=== PATIENT | male | born 1975 | race Caucasian/White ===

== ENCOUNTER → 2017-04-04 | Outpatient (CLI) | payer BC ==
[~2017-04-04] MED LIST: CHOL400T43 GT; HYDR-1231 PO; MULT-974 PO; NFNEB10T PO; OMEP20CA12 PO
--- NOTE | 2017-04-04 14:34 | Diagnostic Imaging Report ---
INDICATION: Nonhealing ulcer. Time of exam 2:32 PM A BB marker was placed at the area of the nonhealing ulcer in the lateral right foot. Postsurgical changes to the right foot are noted. There are plates and screws transfixing the fourth and fifth metatarsals. There appears to be segmental fractures involving the plate of the fifth metatarsal. Fractures are at the junctions of the proximal and mid third as well as the mid and distal third. There is some residual lucency through the proximal fifth metatarsal consistent with a residual fracture line. No definite bony destructive changes are seen. No soft tissue gas is identified. Midfoot is unremarkable. Hindfoot does show 2 partially threaded screws transfixing the calcaneus. Minimal residual lucency through the calcaneus is present. Impression: Postop changes to the right foot, as described. There has been a fracture of the plate transfixing the fifth metatarsal. There are some residual fracture lines of the fifth metatarsal and calcaneus. No bony destructive changes are seen. Dictated by: Dictated on workstation # [id number]
== END ==
LOC: RAD 13:59
PROVIDERS: ATTEND Nurse Practitioner
DX: T84.213A Breakdown (mechanical) of internal fixation device of bones of foot and toes, initial encounter (principal); S92.351A Displaced fracture of fifth metatarsal bone, right foot, initial encounter for closed fracture; S92.001A Unspecified fracture of right calcaneus, initial encounter for closed fracture; L97.412 Non-pressure chronic ulcer of right heel and midfoot with fat layer exposed
CPT/HCPCS: 73630

== ENCOUNTER → 2017-04-04 | Outpatient (CLI) | payer BC | LOC: WOUNDCARE 12:04 | PROVIDERS: ATTEND Nurse Practitioner | DX: L97.412 Non-pressure chronic ulcer of right heel and midfoot with fat layer exposed (principal); G57.93 Unspecified mononeuropathy of bilateral lower limbs; E24.0 Pituitary-dependent Cushing's disease | CPT/HCPCS: 11042; 87070; 87075; 87101; 87205 ==

== ENCOUNTER → 2017-04-11 | Outpatient (CLI) | payer BC | LOC: WOUNDCARE 15:12 | PROVIDERS: ATTEND Nurse Practitioner | DX: L97.412 Non-pressure chronic ulcer of right heel and midfoot with fat layer exposed (principal); G57.93 Unspecified mononeuropathy of bilateral lower limbs; E24.0 Pituitary-dependent Cushing's disease | CPT/HCPCS: 11042; 82962 ==

== ENCOUNTER 2017-04-30 17:11 | Emergency (ER) | payer BC ==
[~2017-04-30] VITALS: Ht 195.6 cm; Wt 131.5 kg
--- OUTSIDE RECORDS SUMMARY | 2017-04-30 17:17 | XMS REPORT | Continuity of Care Document ---
Author Author [facility] Organization [facility] Address Unknown Phone Unavailable Allergies Active Description Code Type Severity Reaction Onset Reported/Identified Relationship to Patient Clinical Status Yes No Known Drug Allergies [id number] Drug Allergy Unknown N/A 07/17/2014 Medications There is no data. Problems Date Dx Coded Attending Type Code Diagnosis Diagnosed By 05/28/2011 Ot 288.60 05/28/2011 Ot 401.9 05/28/2011 Ot 692.9 05/28/2011 Ot V58.69 07/17/2014 Ot 288.60 07/17/2014 Ot 288.60 07/17/2014 Ot 288.60 07/17/2014 Ot 288.60 07/17/2014 TORIBIO TORRES MD Ot 592.1 07/17/2014 TORIBIO TORRES MD Ot 789.04 09/05/2014 Ot 288.60 09/05/2014 Ot 288.60 09/05/2014 Ot 288.60 09/09/2014 Ot 288.60 09/09/2014 Ot 288.60 09/09/2014 Ot 288.60 11/22/2014 Ot 288.60 11/22/2014 Ot 288.60 11/22/2014 Ot 288.60 12/01/2014 DONG, BOBAN N Ot 288.60 12/01/2014 DONG, BOBAN N Ot V58.69 12/02/2014 DONG, BOBAN N Ot 288.60 12/02/2014 DONG, BOBAN N Ot V58.69 12/08/2014 DONG, BOBAN N Ot 288.60 12/08/2014 DONG, BOBAN N Ot V58.69 01/10/2015 DONG, BOBAN N Ot 288.60 01/10/2015 DONG, BOBAN N Ot V58.69 01/19/2015 DONG, BOBAN N Ot D72.829 01/19/2015 DONG, BOBAN N Ot Z79.899 02/17/2015 DONG, BOBAN N Ot D72.829 02/17/2015 DAVID UMANA Ot Z79.899 03/09/2015 DAVID UMANA Ot D72.829 03/09/2015 DAVID UMANA Ot Z79.899 04/05/2017 JAYLEN MANZO ELECTRO PLATER Ot 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 04/05/2017 JAYLEN MANZO ELECTRO PLATER Ot G57.93 UNSPECIFIED MONONEUROPATHY OF BILATERAL 04/05/2017 JAYLEN MANZO R ELECTRO PLATER Ot 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 04/08/2017 JAYLEN MANZO R ELECTRO PLATER Ot 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 04/08/2017 JAYLEN MANZO R ELECTRO PLATER Ot S92.001A UNSP FRACTURE OF RIGHT CALCANEUS, INIT F 04/08/2017 JAYLEN MANZO ELECTRO PLATER Ot S92.351A DISP FX OF FIFTH METATARSAL BONE, RIGHT 04/08/2017 JAYLEN MANZO ELECTRO PLATER Ot T84.213A BREAKDOWN OF INT FIX OF BONES OF FOOT AN 04/12/2017 JAYLEN MANZO ELECTRO PLATER Ot 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 04/12/2017 JAYLEN MANZO R ELECTRO PLATER Ot G57.93 UNSPECIFIED MONONEUROPATHY OF BILATERAL 04/12/2017 JAYLEN MANZO R ELECTRO PLATER Ot 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 04/17/2017 JAYLEN MANZO ELECTRO PLATER Ot 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 04/17/2017 JAYLEN MANZO ELECTRO PLATER Ot G57.93 UNSPECIFIED MONONEUROPATHY OF BILATERAL 04/17/2017 JAYLEN MANZO ELECTRO PLATER Ot 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 04/17/2017 JAYLEN MANZO R ELECTRO PLATER Ot 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 Results Test Result Range Bacteria identification in isolate by anaerobe culture - 04/04/17 13:30 QUANTITY OF GROWTH Scant Growth NRG Bacteria identification in isolate by anaerobe culture [id number] NRG Gram stain microscopy - 04/04/17 13:30 GRAM STAIN RESULT MODERATE # GRAM POSITIVE COCCI NRG Bacteria identification in wound by culture - 04/04/17 13:30 Bacteria identification in wound by culture [id number] NR FREE TEXT EXTERNAL SEE COMMENT NRG QUANTITY OF GROWTH Moderate Growth NRG Bacterial susceptibility panel - 04/04/17 13:30 Oxacillin susceptibility test by minimum inhibitory concentration 0.5 NRG Gentamicin susceptibility test by minimum inhibitory concentration < = NRG Clindamycin susceptibility test by minimum inhibitory concentration R NRG Erythromycin susceptibility test by minimum inhibitory concentration R NRG Trimethoprim/sulfamethoxazole susceptibility test by minimum inhibitoryconcentration S NRG Vancomycin susceptibility test by minimum inhibitory concentration 1 NRG Levofloxacin susceptibility test by minimum inhibitory concentration 0.25 NRG Rifampin susceptibility test by minimum inhibitory concentration <= NRG Tetracycline susceptibility test by minimum inhibitory concentration <= NRG Linezolid susceptibility test by minimum inhibitory concentration 2 NRG Fungus culture - 04/04/17 13:30 FUNGUS REPORT NO FUNGUS GROWTH OBSERVED NRG Capillary blood glucose measurement by glucometer (mass/volume) - 04/11/17 16: 24 Capillary blood glucose measurement by glucometer (mass/volume) 69 mg/dL 70-110 Encounters ACCT No. Visit Date/Time Discharge Status Pt. Type Provider Facility Loc./Unit Complaint [id number] 04/11/2017 15:12:00 04/11/2017 23:59:59 CLS Outpatient JAYLEN MANZO APRN [facility] WOUNDCARE [id number] 04/04/2017 13:59:00 04/04/2017 23:59:59 CLS Outpatient JAYLEN MANZO APRN [facility] RAD L97.412 [id number] 04/04/2017 12:04:00 04/04/2017 23:59:59 CLS Outpatient JOVANY JAYLEN R ELECTRO PLATER [facility] WOUNDCARE [id number] 03/10/2015 00:10:00 03/10/2015 23:59:59 CLS Preadmit DAVID UMANA [facility] ONC [id number] 01/03/2015 14:52:00 03/09/2015 00:01:00 DIS Outpatient DAVID UMANA [facility] ONC [id number] 11/22/2014 15:45:00 12/01/2014 00:01:00 DIS Outpatient DAVID UMANA [facility] ONC [id number] 07/17/2014 21:49:00 07/17/2014 23:21:00 DIS Emergency TORIBIO TORRES MD [facility] ER [id number] 09/05/2014 08:10:00 Document Registration [id number] 09/05/2014 08:10:00 Document Registration [id number] 05/29/2011 00:00:00 Document Registration [id number] 02/27/2011 09:36:00 Document Registration [id number] 02/12/2011 15:01:00 Document Registration [id number] 12/27/2010 15:22:00 Document Registration
--- NOTE | 2017-04-30 18:11 | ED Respiratory ---
General Chief Complaint: Respiratory Problems Stated Complaint: SOB, POSS BLOOD CLOT Nursing Triage Note: AMB TO ROOM FROM [facility] DENT[facility] ASSIST[facility] OFFICE . PATIENT REPORTS IS 1 WEEK POST OF FROM HAVING HARDWARE REMOVED FROM R LEG. TODAY FEELING SOA. NO DISTRESS ON ADMIT. Source: patient, spouse Exam Limitations: no limitations History of Present Illness Date Seen by Provider: Apr 30, 2017 Time Seen by Provider: 17:55 Initial Comments Patient presents to the ER from [facility] and [place] where he was seen and they sent him here for further workup here is concerned he might have a pulmonary embolism. Patient remarks that since this afternoon he started feeling very short of breath with some pressure heaviness on his chest. He has no history of coronary disease or asthma. One week ago he had surgery on his foot to have some broken hardware removed as well as a bone spur shaved off. He was doing well and was on a stress response dose of steroids and 2 days ago had worked his way down to his normal dose of 20 mg in the morning followed by 10 in the afternoon and 10 at night. 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 He is nondiabetic although he was for about a year and has resultant for extremity peripheral neuropathy. He says he does not have a history of nephropathy. He's never had a blood clot before and he is not on blood thinners. He does not think he is having any pain in his calf either side however he cannot feel his foot or toes secondary to the neuropathy. He is in a boot. The patient states in the past when his steroid dose was lowered he felt mostly nausea, malaise, flulike symptoms and that is different from today's presentation. Allergies and Home Medications Allergies Coded Allergies: No Known Drug Allergies (Unverified , 07/17/14) Home Medications Hydrocodone Bit/Acetaminophen 1 Tab Tablet, 1-2 TAB PO Q6H PRN for PAIN Prescribed by: TORIBIO TORRES on 07/17/140 Multivitamin 1 Each Tablet, 1 TAB PO TID, (Reported) Nebivolol Hcl 10 Mg Tablet, 5 MG PO DAILY, (Reported) Omeprazole 20 Mg Capsule.dr, 20 MG PO DAILY, (Reported) Constitutional: No chills, No fever, No malaise, No weakness EENTM: No ear discharge, No hearing loss, No eye pain, No mouth pain Respiratory: No cough, No phlegm, short of breath, No stridor, No wheezing Cardiovascular: see HPI, No chest pain, No Hx of Intervention, No palpitations , No syncope Gastrointestinal: No abdominal pain, No constipation, No nausea, No vomiting Genitourinary: No discharge, No dysuria Skin: No pruritus, No rash Psychiatric/Neurological: Denies Anxiety, Denies Depressed Past Yueuoat-Mijpdd-Ufmeba Hx Patient Social History Alcohol Use: Denies Use Recreational Drug Use: No Smoking Status: Never a Smoker Recent Foreign Travel: No Contact w/Someone Who Travel: No Recent Infectious Disease Expo: No Surgeries History of Surgeries: Yes (gastric sleeve, R foot, L knee) Surgeries: Orthopedic, Vasectomy Respiratory History of Respiratory Disorde: No Cardiovascular History of Cardiac Disorders: Yes Cardiac Disorders: Hypertension Neurological History of Neurological Disord: No Reproductive System Hx Reproductive Disorders: No Sexually Transmitted Disease: No Genitourinary Genitourinary Disorders: Kidney Stones Gastrointestinal History of Gastrointestinal Di: Yes Gastrointestinal Disorders: Gastroesophageal Reflux Musculoskeletal History of Musculoskeletal Dis: No Endocrine History of Endocrine Disorders: Yes Cancer History of Cancer: No Psychosocial History of Psychiatric Problem: No Integumentary History of Skin or Integumenta: No Blood Transfusions History of Blood Disorders: No Physical Exam Vital Signs Vital Signs - First Documented 04/30/17 17:45 Temp 98.2 Pulse 78 Resp 18 B/P (MAP) 133/76 (95) Pulse Ox 98 O2 Delivery Room Air Capillary Refill : Greater Than 3 Seconds General Appearance: WD/WN, no apparent distress Eyes: Bilateral Eye Normal Inspection, Bilateral Eye PERRL, Bilateral Eye EOMI HEENT: PERRL/EOMI, normal ENT inspection, pharynx normal Neck: non-tender, full range of motion, normal inspection Respiratory: chest non-tender, lungs clear, normal breath sounds, no respiratory distress, no accessory muscle use Cardiovascular: normal peripheral pulses, regular rate, rhythm Gastrointestinal: normal bowel sounds, non tender, soft Extremities: normal range of motion, non-tender, no pedal edema, normal capillary refill, swelling (Right calf is about 10% larger than left calf but nonerythematous and with no pain and no Bernard's sign.), other (Right popliteal artery pulse easily palpable) Neurologic/Psychiatric: alert, normal mood/affect, oriented x 3, sensory deficit (Stable deficit of sensory in both feet.) Skin: normal color, warm/dry Progress/Results/Core Measures Suspected Sepsis Recent Fever Within 48 Hours: No Infection Criteria Present: None New/Unexplained Altered Menta: No Sepsis Screen: No Definite Risk Sepsis Diagnosis: SIRS Temperature:98.2 Pulse: 78 Respiratory Rate: 18 Laboratory Tests 04/30/17 18:26: White Blood Count 18.0H Blood Pressure 133 /76 Mean: 95 Laboratory Tests 04/30/17 18:26: Creatinine 1.18, Platelet Count 368, Total Bilirubin 1.0 Results/Orders Lab Results Laboratory Tests Test 04/30/17 18:26 Range/Units White Blood Count 18.0 H 4.3-11.0 10^3/uL Red Blood Count 4.41 4.35-5.85 10^6/uL Hemoglobin 11.7 L 13.3-17.7 G/DL Hematocrit 35 L 40-54 % Mean Corpuscular Volume 80 80-99 FL Mean Corpuscular Hemoglobin 27 25-34 PG Mean Corpuscular Hemoglobin Concent 33 32-36 G/DL Red Cell Distribution Width 14.6 H 10.0-14.5 % Platelet Count 368 130-400 10^3/uL Mean Platelet Volume 9.9 7.4-10.4 FL Neutrophils (%) (Auto) 69 42-75 % Lymphocytes (%) (Auto) 24 12-44 % Monocytes (%) (Auto) 6 0-12 % Eosinophils (%) (Auto) 1 0-10 % Basophils (%) (Auto) 0 0-10 % Neutrophils # (Auto) 12.4 H 1.8-7.8 X 10^3 Lymphocytes # (Auto) 4.3 H 1.0-4.0 X 10^3 Monocytes # (Auto) 1.1 H 0.0-1.0 X 10^3 Eosinophils # (Auto) 0.2 0.0-0.3 10^3/uL Basophils # (Auto) 0.0 0.0-0.1 10^3/uL Neutrophils % (Manual) 68 % Lymphocytes % (Manual) 25 % Monocytes % (Manual) 7 % Blood Morphology Comment NORMAL D-Dimer 0.53 H 0.00-0.49 UG/ML Sodium Level 139 135-145 MMOL/L Potassium Level 3.8 3.6-5.0 MMOL/L Chloride Level 98 98-107 MMOL/L Carbon Dioxide Level 31 21-32 MMOL/L Anion Gap 10 5-14 MMOL/L Blood Urea Nitrogen 28 H 7-18 MG/DL Creatinine 1.18 0.60-1.30 MG/DL Estimat Glomerular Filtration Rate > 60 BUN/Creatinine Ratio 24 Glucose Level 102 70-105 MG/DL Calcium Level 10.0 8.5-10.1 MG/DL Total Bilirubin 1.0 0.1-1.0 MG/DL Aspartate Amino Transf (AST/SGOT) 13 5-34 U/L Alanine Aminotransferase (ALT/SGPT) 18 0-55 U/L Alkaline Phosphatase 124 40-136 U/L Troponin I < 0.30 <0.30 NG/ML Total Protein 7.5 6.4-8.2 GM/DL Albumin 4.2 3.2-4.5 GM/DL My Orders Orders - OLIVIA WEBB Cbc With Automated Diff (04/30/17 18:04) Comprehensive Metabolic Panel (04/30/17 18:04) Fibrin Degradation Products (04/30/17 18:04) Troponin I (04/30/17 18:04) Chest Pa/Lat (2 View) (04/30/17 18:04) Saline Lock/Iv-Start (04/30/17 18:04) Ekg Tracing (04/30/17 18:04) Continuous Ekg Monitoring (04/30/17 18:04) Manual Differential (04/30/17 18:26) Ct Angio Chest W (04/30/17 19:21) Ns Iv 1000 Ml (Sodium Chloride 0.9%) (04/30/17 19:35) Iohexol Injection (Omnipaque 350 Mg/Ml 1 (04/30/17 19:45) Ns (Ivpb) (Sodium Chloride 0.9% Ivpb Bag (04/30/17 19:45) Rocephin 1 Gm Iv (1 X Dose) (04/30/17 20:30) Azithromycin Tablet (Zithromax Tablet) (04/30/17 20:30) Medications Given in ED Current Medications Medications Dose Ordered Sig/Freedom Route Start Time Stop Time Status Last Admin Dose Admin Iohexol 150 ml ONCE ONCE IV 04/30/17 19:45 04/30/17 19:50 DC 04/30/17 19:46 140 ML Sodium Chloride 100 ml ONCE ONCE IV 04/30/17 19:45 04/30/17 19:50 DC 04/30/17 19:46 100 ML Sodium Chloride 1,000 ml @ 0 mls/hr Q0M ONCE IV 04/30/17 19:35 04/30/17 19:36 DC 04/30/17 19:57 0 MLS/HR Vital Signs/I&O Vital Sign - Last 12Hours 04/30/17 17:45 Temp 98.2 Pulse 78 Resp 18 B/P (MAP) 133/76 (95) Pulse Ox 98 O2 Delivery Room Air Capillary Refill : Greater Than 3 Seconds Blood Pressure Mean: 95 Progress Note #1: Time: 18:12 Progress Note Given his recent history of surgery a week ago possible there could be something going on and a d-dimer is likely to be positive resultant surgery but he would prefer to pursue the blood tests as he was told he was going to get before going to CT scan. We will check this as well as his kidney function, look for anemia, elevated white count or any other evidence of inflammation. However being on this doses of steroids may mask other causes for chest pressure and shortness of air such as pneumonia, bronchitis. The patient's having no coughing or excess mucous production since our interview. 1945: D-dimer is elevated so we will go ahead and proceed with a CT scan of his chest. Progress Note #2: Time: 20:20 Progress Note Poss Pna. He has been on Doxycycline for 14 days for prevention of his recent foot surgery. We will give Rocephin and first dose of Azithro and let him go outpt on Augmentin and Azithro and F/U later this week. ECG Initial ECG Impression Date: Apr 30, 2017 Initial ECG Impression Time: 18:08 Initial ECG Rate: 69 Initial ECG Rhythm: Normal Sinus Initial ECG Intervals: Normal Initial ECG Impression: Normal, Nonspecific Changes Initial ECG Comparisson: No Previous ECG Available Comment No ST segment elevation or depression. Diagnostic Imaging Diagonstic Imaging: Xray Plain Films/CT/US/NM/MRI: chest Comments NAME: KORI FREEMAN MED REC#: [id number] PHYSICIAN: OLIVIA WEBB MD CC: ERAN FARIA MD; OLIVIA WEBB Page 1 of 1 RADIOLOGY REPORT [facility], [facility]. [place], [place] CC: ERAN FARIA MD; OLIVIA WEBB Page 1 of 1 RADIOLOGY REPORT NAME: KORI FREEMAN [facility] REC#: [id number] PT STATUS: REG ER : 1975 PHYSICIAN: LOIVIA WEBB MD ADMIT DATE: 04/30/17/ER Signed Date of Exam: 04/30/17 CHEST PA/LAT (2 VIEW) INDICATION: Shortness of breath. Time of exam: 6:53 PM No prior studies are available for comparison. The heart size is normal. The pulmonary vascularity is unremarkable. The lungs are clear. No infiltrate, effusion or pneumothorax is detected. Impression: No acute cardiopulmonary process is detected. Dictated by: Dictated on workstation # [id number] Dict: 04/30/171838 Trans: 04/30/171914 Interpreted by: ERAN FARIA MD Electronically signed by: ERAN FARIA MD 04/30/171914 Reviewed: Reviewed by Ut Diagonstic Imaging: CT (angio) Plain Films/CT/US/NM/MRI: chest Comments [facility], [place], [place] NAME: KORI FREEMAN [facility] REC#: [id number] PT STATUS: REG ER : 1975 PHYSICIAN: OLIVIA WEBB MD ADMIT DATE: 04/30/17/ER Draft Date of Exam:04/30/17 CT ANGIO CHEST W PROCEDURE: CT angiography of the chest with contrast. TECHNIQUE: Multiple contiguous axial images were obtained through the chest after uneventful bolus administration of intravenous contrast. Reconstructed CTA MIP acquisitions were also performed. INDICATION: Shortness of breath. No prior studies are available for comparison. FINDINGS: Evaluation of the pulmonary arterial system is without evidence of thromboembolism. No filling defects are identified within the central, lobar or segmental branches. The thoracic aorta is normal caliber. No dissection is seen. There is no pericardial or pleural fluid identified. Parenchymal evaluation shows very minimal patchy airspace infiltrate in the posterior left upper lobe. Minimal tree-in-bud opacities in the superior segment of the right lower lobe are noted, likely on infectious/inflammatory basis. Mild bronchial wall thickening is seen bilaterally. No consolidation or mass is identified. Upper abdomen is unremarkable. IMPRESSION: 1. No evidence of pulmonary embolism or thoracic aortic dissection. 2. There is some generalized bronchial wall thickening, perhaps on basis of bronchitis. 3. Minimal left upper lobe infiltrate and tree-in-bud opacities in the superior segment right lower lobe, likely infectious/inflammatory basis. Dictated on workstation # [id number] Dict: 04/30/171999 Trans: 04/30/172005 [id number] Interpreted by: ERAN FARIA MD Electronically signed by: Reviewed: Reviewed by Me Departure Impression Impression: Primary Impression: Pneumonia Qualified Codes: J18.1 - Lobar pneumonia, unspecified organism Disposition: HOME, SELF-CARE Condition: Stable Departure-Patient Inst. Decision time for Depature: 20:30 Referrals: DEXTER LIGHT (PCP/Family) Primary Care Physician Patient Instructions: Pneumonia, Adult (DC) Add. Discharge Instructions: Tomorrow morning to the pharmacy and sheepskin pickler your azithromycin and take one tablet daily for the next 4 days. It up the Augmentin and take one tablet twice a day for 10 more days. superintendent measurement a bottle of probiotics and take one capsule twice a day until you're off the antibiotics to prevent GI distress. If you are already taking probiotics to just double the amount that you are taking. Follow up with your primary care physician before the end of the week for reassessment to make sure that things are going the right direction. superintendent measurement the albuterol and use 2 puffs through the spacer every 4 hours as needed for coughing, shortness of breath or wheezing. If you're having worsening shortness of breath , chest pain, other worrisome symptoms then return to the ER. Complete your doxycycline as prescribed. Tomorrow contact your recreation director and ask whether or not you should go back on a stress dose of prednisone. If you begin to have problems with your blood pressure, blood sugars, weakness or tiredness etc. return to the ER and double your prednisone. All discharge instructions reviewed with patient and/or family. Voiced understanding. Scripts Albuterol Sulfate (VENTOLIN HFA) 1 Puff Puff 2 PUFF IH Q4H Y for SHORTNESS OF BREATH, #1 EA 0 Refills 1 PUFF = 90 MCG Prov: OLIVIA WEBB 04/30/17 Azithromycin (Azithromycin) 250 Mg Tablet 250 MG PO DAILY, #4 TAB 0 Refills Prov: OLIVIA WEBB 04/30/17 Amoxicillin/Potassium Clav (Augmentin 875-125 Tablet) 1 Each Tablet 1 EACH PO BID for 10 Days, #20 TAB 0 Refills Prov: OLIVIA WEBB 04/30/17 Work/School Note: Work Release Form Date Seen in the Emergency Department: Apr 30, 2017 Return to Work: May 01, 2017 Restrictions: No Restrictions Copy Copies To 1: ANTONI MACIAS TITUS J Apr 30, 2017 18:11
[2017-04-30 18:36] LABS: BASOPHILS % (AUTO) 0 % (0-10); EOSINOPHILS # (AUTO) 0.2 10^3/uL (0.0-0.3); EOSINOPHILS % (AUTO) 1 % (0-10); HEMATOCRIT 35 % (40-54); HEMOGLOBIN 11.7 G/DL (13.3-17.7); LYMPHOCYTES # (AUTO) 4.3 X 10^3 (1.0-4.0); LYMPHOCYTES % (AUTO) 24 % (12-44); MEAN CORPUSCULAR HEMOGLOBIN 27 PG (25-34); MEAN CORPUSCULAR HGB CONC 33 G/DL (32-36); MEAN CORPUSCULAR VOLUME 80 FL (80-99); MEAN PLATELET VOLUME 9.9 FL (7.4-10.4); MONOCYTES # (AUTO) 1.1 X 10^3 (0.0-1.0); MONOCYTES % (AUTO) 6 % (0-12); NEUTROPHILS # (AUTO) 12.4 X 10^3 (1.8-7.8); NEUTROPHILS % (AUTO) 69 % (42-75); PLATELET COUNT 368 10^3/uL (130-400); RED BLOOD COUNT 4.41 10^6/uL (4.35-5.85); RED CELL DISTRIBUTION WIDTH 14.6 % (10.0-14.5)
--- NOTE | 2017-04-30 18:43 | Diagnostic Imaging Report ---
INDICATION: Shortness of breath. Time of exam: 6:53 PM No prior studies are available for comparison. The heart size is normal. The pulmonary vascularity is unremarkable. The lungs are clear. No infiltrate, effusion or pneumothorax is detected. Impression: No acute cardiopulmonary process is detected. Dictated by: Dictated on workstation # [id number]
[2017-04-30 18:55] LABS: ALANINE AMINOTRANSFERASE 18 U/L (0-55); ALBUMIN 4.2 GM/DL (3.2-4.5); ALKALINE PHOSPHATASE 124 U/L (40-136); BUN/CREATININE RATIO 24; CARBON DIOXIDE 31 MMOL/L (21-32); CHLORIDE 98 MMOL/L (98-107); CREATININE SERUM 1.18 MG/DL (0.60-1.30); GFR ESTIMATED > 60; GLUCOSE 102 MG/DL (70-105); POTASSIUM 3.8 MMOL/L (3.6-5.0); SODIUM 139 MMOL/L (135-145); TOTAL PROTEIN 7.5 GM/DL (6.4-8.2)
[2017-04-30 18:59] LABS: LYMPHOCYTES % (MANUAL) 25 %; MONOCYTES % (MANUAL) 7 %; NEUTROPHILS % (MANUAL) 68 %; RBC MORPH NORMAL
[2017-04-30 19:00] VITALS: BP 148/78
[2017-04-30] MEDS ORDERED: NS IV 1000 ML 1,000 ML IV ONE (19:35)
[2017-04-30] MEDS ORDERED: IOHEXOL 350 MG/ML 150 ML (OMNIPAQUE 350) VIAL IV ONE (19:45)
[2017-04-30] MEDS ORDERED: NS 100 ML (IVPB) BAG IV ONE (19:45)
--- NOTE | 2017-04-30 20:06 | Diagnostic Imaging Report ---
PROCEDURE: CT angiography of the chest with contrast. TECHNIQUE: Multiple contiguous axial images were obtained through the chest after uneventful bolus administration of intravenous contrast. Reconstructed CTA MIP acquisitions were also performed. INDICATION: Shortness of breath. No prior studies are available for comparison. FINDINGS: Evaluation of the pulmonary arterial system is without evidence of thromboembolism. No filling defects are identified within the central, lobar or segmental branches. The thoracic aorta is normal caliber. No dissection is seen. There is no pericardial or pleural fluid identified. Parenchymal evaluation shows very minimal patchy airspace infiltrate in the posterior left upper lobe. Minimal tree-in-bud opacities in the superior segment of the right lower lobe are noted, likely on infectious/inflammatory basis. Mild bronchial wall thickening is seen bilaterally. No consolidation or mass is identified. Upper abdomen is unremarkable. IMPRESSION: 1. No evidence of pulmonary embolism or thoracic aortic dissection. 2. There is some generalized bronchial wall thickening, perhaps on basis of bronchitis. 3. Minimal left upper lobe infiltrate and tree-in-bud opacities in the superior segment right lower lobe, likely infectious/inflammatory basis. Dictated by: Dictated on workstation # [id number]
[2017-04-30] MEDS ORDERED: AZIT250T12 PO (20:29)
[2017-04-30] MEDS ORDERED: RT-ALBUINH IH (20:29)
[2017-04-30] MEDS ORDERED: AMOX-358 PO (20:29)
[2017-04-30 20:30] VITALS: BP 137/88
[2017-04-30] MEDS ORDERED: AZITHROMYCIN 250 MG TAB (ZITHROMAX) PO ONE (20:30)
[2017-04-30] MEDS ORDERED: cefTRIAXone INJECTION 1,000 MG in NS (IVPB) 50 ML IV ONE (20:30)
[2017-04-30 20:51] VITALS: BP 141/82
== END 2017-04-30 20:46 | disposition home or self-care (01) ==
LOC: EDUNIT# 17:11 → ER 17:12
DX: J18.9 Pneumonia, unspecified organism (principal); K21.9 Gastro-esophageal reflux disease without esophagitis; Z87.442 Personal history of urinary calculi
CPT/HCPCS: 36415; 71046; 71275; 80053; 84484; 85007; 85027; 85379; 93005; 96361; 96374

== ENCOUNTER → 2017-11-26 | Outpatient (CLI) | payer BC ==
[~2017-11-26] MED LIST changes: +AMOX-358 PO; +AZIT250T12 PO; +GADOBUTROL 15 MMOL/15 ML (GADAVIST) VIAL IV ONE; +RT-ALBUINH IH
--- NOTE | 2017-11-26 17:26 | Diagnostic Imaging Report ---
INDICATION: History of pituitary adenoma, surgery November 2016, this is for followup. COMPARISON: There are no previous for comparison. FINDINGS: There are no foci of abnormal diffusion restriction. There were no findings of an acute or subacute ischemic infarct. A presumed arachnoid cyst in the left middle cranial fossa noted with adjacent pneumatization of the left petrous apex. Pituitary shows a normal volume, morphology and superior concavity. The infundibulum and optic chiasm unremarkable. There is no sellar or suprasellar mass or mass effect. Pituitary showed unremarkable homogenous enhancement following contrast. There is no macroadenoma nor findings suggestive of a microadenoma. Clivus unremarkable. With IV contrast, there was no abnormal parenchymal or meningeal enhancement. The ventricular system nondilated and nondisplaced. No mass effect. There is enhancement of the major dural venous sinuses. There were no findings of focal or generalized cerebral edema. IMPRESSION: Extraaxial cyst presumed arachnoid cyst, left middle cranial fossa. No acute or suspicious appearing space-occupying lesion. Unremarkable appearance of the sella, pituitary, infundibulum and optic chiasm. No acute appearing abnormality. Dictated by: Dictated on workstation # [id number]
== END ==
LOC: RAD 15:17
PROVIDERS: ATTEND Neurological Surgery
DX: E24.0 Pituitary-dependent Cushing's disease (principal); D35.2 Benign neoplasm of pituitary gland
CPT/HCPCS: 70553